=== PATIENT | female | born 1995 | race Two or more races ===

== ENCOUNTER 2022-08-01 19:35 | Inpatient (IN) | payer OTHER ==
[~2022-08-01] VITALS: Ht 154.9 cm; Wt 63.3 kg
[2022-08-01] MEDS ORDERED: IOHEXOL 300 MG/ML 100ML BOTTLE IJ ONE (20:46)
[2022-08-01 21:41] LABS: Basophils # (auto) 0.1 10 ^3/uL (0-0.2); Basophils % (auto) 0.9 % (0.0-2.0); Eosinophils # (auto) 0.1 10 ^3/uL (0-0.8); Eosinophils % (auto) 0.6 % (0.0-7.0); Hematocrit 37.7 % (36.0-46.0); Lymphocytes # (auto) 1.3 10 ^3/uL (0.4-5.4); Lymphocytes % (auto) 14.8 % (10.0-50.0); Mean Corpuscular Hemoglobin 31.7 pg (28.0-32.0); Mean Corpuscular Hgb Conc. 34.6 g/dL (32.0-36.0); Mean Corpuscular Volume 91.6 fL (80.0-100.0); Monocytes # (auto) 0.9 10 ^3/uL (0-1.3); Monocytes % (auto) 10.4 % (0.0-12.0); Neutrophils # (auto) 6.4 10 ^3/uL (1.6-8.6); Neutrophils % (auto) 73.3 % (37.0-80.0); Nucleated Red Blood Cells % 0.1 %; Red Blood Cells 4.11 10^6/uL (4.0-5.20); White Blood Cell 8.7 10^3/uL (4.4-10.8)
[2022-08-01] MEDS ORDERED: ONDANSETRON HCL 4 MG/2 ML VIAL IV ONE (21:45)
[2022-08-01] MEDS ORDERED: MORPHINE SULFATE 4 MG/ML SYR/VIAL IV ONE (21:45)
[2022-08-01 22:04] LABS: INR 1.11 (0.9-1.15); Partial Thromboplastin Time 41.7 sec (24.6-33.4)
[2022-08-01 22:07] LABS: Albumin 3.5 g/dL (3.4-5.0); Calcium 9.1 mg/dL (8.5-10.1); Potassium 3.8 mmol/L (3.5-5.1)
[2022-08-01 22:11] LABS: BUN/Creatinine Ratio 24.1; Bilirubin, Total 0.4 mg/dL (0.2-1.0); Total Protein 8.2 g/dL (6.4-8.2)
[2022-08-02] MEDS ORDERED: HYDROmorphone HCL 2 MG/ML VL/or syr IV ONE (03:15)
[2022-08-02] MEDS ORDERED: ENOXAPARIN SOD 60 MG/0.6 ML SYRINGE SC ONE (04:00)
[2022-08-02] MEDS ORDERED: SODIUM CHLORIDE 0.9% 1,000 ML IV ONE (04:30)
[2022-08-02] MEDS: SODIUM CHLORIDE 0.9% 1,000 ML IV SCH ×2 (05:45→22:25)
[2022-08-02] MEDS ORDERED: TEMAZEPAM 15 MG CAP PO PRN (05:45)
[2022-08-02] MEDS ORDERED: NITROGLYCERIN 0.4 MG SL TAB SL PRN (05:45)
[2022-08-02] MEDS ORDERED: MORPHINE SULFATE INJ 2 MG/ml SYRG IV PRN ×2 (05:45)
[2022-08-02] MEDS ORDERED: DOCUSATE SOD 100 MG CAP PO PRN (05:45)
[2022-08-02 06:14] LABS: Basophils # (auto) 0 10 ^3/uL (0-0.2); Basophils % (auto) 0.5 % (0.0-2.0); Eosinophils # (auto) 0.1 10 ^3/uL (0-0.8); Eosinophils % (auto) 0.8 % (0.0-7.0); Hematocrit 31.5 % (36.0-46.0); Lymphocytes # (auto) 1.1 10 ^3/uL (0.4-5.4); Lymphocytes % (auto) 11.5 % (10.0-50.0); Mean Corpuscular Hemoglobin 31.8 pg (28.0-32.0); Mean Corpuscular Hgb Conc. 34.9 g/dL (32.0-36.0); Mean Corpuscular Volume 91.3 fL (80.0-100.0); Monocytes # (auto) 0.9 10 ^3/uL (0-1.3); Monocytes % (auto) 9.5 % (0.0-12.0); Neutrophils # (auto) 7.1 10 ^3/uL (1.6-8.6); Neutrophils % (auto) 77.7 % (37.0-80.0); Nucleated Red Blood Cells % 0.1 %; Red Blood Cells 3.44 10^6/uL (4.0-5.20); Red Cell Distribution Width 12.9 % (11.8-14.3); White Blood Cell 9.1 10^3/uL (4.4-10.8)
[2022-08-02 06:26] LABS: Potassium 3.6 mmol/L (3.5-5.1)
[2022-08-02 06:42] LABS: Albumin 2.8 g/dL (3.4-5.0); BUN/Creatinine Ratio 29.8; Calcium 8.2 mg/dL (8.5-10.1)
[2022-08-02 06:57] LABS: Bilirubin, Total 0.4 mg/dL (0.2-1.0); Total Protein 6.9 g/dL (6.4-8.2)
[2022-08-02] MEDS ORDERED: ENOXAPARIN SOD 40 MG/0.4 ML SYRINGE SC SCH (10:00)
[2022-08-02] MEDS ORDERED: ENOXAPARIN SOD 60 MG/0.6 ML SYRINGE SC SCH ×2 (10:00→22:00)
[2022-08-02 10:16] LABS: Urine Bacteria NONE SEEN /hpf (None Seen); Urine Blood Negative /uL (Negative); Urine Specific Gravity 1.024 (1.001-1.035); Urine WBC 1 /hpf (0 - 5)
[2022-08-02] MEDS: ONDANSETRON HCL 4 MG/2 ML VIAL IV PRN ×2 (10:38→15:49)
[2022-08-02] MEDS: HYDROmorphone HCL 2 MG/ML VL/or syr IV PRN ×3 (10:39→21:35)
[2022-08-02] MEDS ORDERED: HEPARIN SODIUM (PORCINE) 5000 UNITS/ML 1ML VIAL IV ONE (11:00)
[2022-08-02] MEDS ORDERED: HEPARIN DRIP/D5W 100UNITS/ML 250 ML IV SCH ×2 (11:00→19:45)
[2022-08-02 12:08] LABS: INR 1.13 (0.9-1.15); Partial Thromboplastin Time 44.7 sec (24.6-33.4)
[2022-08-02 12:11] LABS: Basophils # (auto) 0 10 ^3/uL (0-0.2); Basophils % (auto) 0.6 % (0.0-2.0); Eosinophils # (auto) 0.1 10 ^3/uL (0-0.8); Eosinophils % (auto) 0.9 % (0.0-7.0); Hematocrit 32.8 % (36.0-46.0); Hemoglobin 11.5 g/dL (12.2-16.2); Lymphocytes # (auto) 1.3 10 ^3/uL (0.4-5.4); Lymphocytes % (auto) 17.8 % (10.0-50.0); Mean Corpuscular Hemoglobin 32.3 pg (28.0-32.0); Mean Corpuscular Hgb Conc. 35.2 g/dL (32.0-36.0); Monocytes # (auto) 0.9 10 ^3/uL (0-1.3); Monocytes % (auto) 12.3 % (0.0-12.0); Neutrophils # (auto) 5.1 10 ^3/uL (1.6-8.6); Neutrophils % (auto) 68.4 % (37.0-80.0); Red Blood Cells 3.56 10^6/uL (4.0-5.20); White Blood Cell 7.4 10^3/uL (4.4-10.8)
[2022-08-02 18:33] LABS: INR 1.13 (0.9-1.15)
[2022-08-02 18:40] LABS: Partial Thromboplastin Time 113.7 sec (24.6-33.4)
[2022-08-03] VITALS (9 sets, daily range): BP systolic 90–111; BP diastolic 48–75
[2022-08-03] MEDS: HYDROcodone-ACET 5/325MG TAB PO PRN ×2 (01:14→09:14)
[2022-08-03 02:06] LABS: Basophils # (auto) 0 10 ^3/uL (0-0.2); Basophils % (auto) 0.6 % (0.0-2.0); Eosinophils # (auto) 0.2 10 ^3/uL (0-0.8); Eosinophils % (auto) 2.5 % (0.0-7.0); Hematocrit 31.7 % (36.0-46.0); Hemoglobin 10.9 g/dL (12.2-16.2); Lymphocytes # (auto) 1.6 10 ^3/uL (0.4-5.4); Lymphocytes % (auto) 25.3 % (10.0-50.0); Mean Corpuscular Hemoglobin 31.6 pg (28.0-32.0); Mean Corpuscular Hgb Conc. 34.5 g/dL (32.0-36.0); Mean Corpuscular Volume 91.6 fL (80.0-100.0); Monocytes # (auto) 0.7 10 ^3/uL (0-1.3); Monocytes % (auto) 10.7 % (0.0-12.0); Neutrophils # (auto) 3.9 10 ^3/uL (1.6-8.6); Neutrophils % (auto) 60.9 % (37.0-80.0); Nucleated Red Blood Cells % 0.1 %; Red Blood Cells 3.47 10^6/uL (4.0-5.20); Red Cell Distribution Width 13.5 % (11.8-14.3); White Blood Cell 6.4 10^3/uL (4.4-10.8)
[2022-08-03 02:23] LABS: Albumin 2.6 g/dL (3.4-5.0); BUN/Creatinine Ratio 27.4; Calcium 8.6 mg/dL (8.5-10.1); Potassium 3.9 mmol/L (3.5-5.1)
[2022-08-03 02:25] LABS: Bilirubin, Total 0.4 mg/dL (0.2-1.0); Total Protein 6.7 g/dL (6.4-8.2)
[2022-08-03 02:29] LABS: INR 1.11 (0.9-1.15); Partial Thromboplastin Time 47.7 sec (24.6-33.4)
[2022-08-03] MEDS: HEPARIN DRIP/D5W 100UNITS/ML 250 ML IV SCH ×2 (03:23→14:44)
[2022-08-03 10:38] LABS: INR 1.08 (0.9-1.15); Partial Thromboplastin Time 51.7 sec (24.6-33.4)
[2022-08-03] MEDS: HYDROmorphone HCL 2 MG/ML VL/or syr IV PRN ×3 (13:40→23:01)
[2022-08-03] MEDS: SODIUM CHLORIDE 0.9% 1,000 ML IV SCH (15:05)
[2022-08-03 18:05] LABS: INR 1.08 (0.9-1.15); Partial Thromboplastin Time 53.2 sec (24.6-33.4)
[2022-08-03] MEDS: ACETAMINOPHEN 325 MG TAB PO PRN (23:03)
[2022-08-04 05:30] VITALS: BP 96/58
[2022-08-04] MEDS: HYDROmorphone HCL 2 MG/ML VL/or syr IV PRN ×2 (06:22→18:21)
[2022-08-04 06:31] LABS: INR 1.11 (0.9-1.15); Partial Thromboplastin Time 59.5 sec (24.6-33.4)
[2022-08-04] MEDS: SODIUM CHLORIDE 0.9% 1,000 ML IV SCH (07:46)
[2022-08-04 08:54] VITALS: BP 93/55
[2022-08-04] MEDS ORDERED: IODIXANOL 320MG/ML 100ML BTL IV ONE (09:57)
[2022-08-04] MEDS ORDERED: LIDOCAINE 2%HCL (LOCAL ANESTH.) INJ 20ML MDV ONE (09:57)
[2022-08-04] MEDS ORDERED: ANGIOMAX 250 MG VIAL IV ONE (10:15)
[2022-08-04] MEDS ORDERED: SODIUM CHL 0.9% 0 ML ONE (10:15)
[2022-08-04] MEDS ORDERED: fentaNYL CITRATE 100 MCG/2 ML VL ONE (10:15)
[2022-08-04] MEDS ORDERED: MIDAZOLAM HCL 2MG/2ML 2ml VIAL (1mg/ml) ONE (10:15)
[2022-08-04] MEDS ORDERED: HEPARIN SODIUM (PORCINE) 5000 UNITS/ML 1ML VIAL ONE ×2 (10:51→11:48)
[2022-08-04] MEDS ORDERED: HEPARIN 1,000 UNITS/ml 1ML VIAL ONE (11:24)
[2022-08-04] MEDS ORDERED: HYDROmorphone HCL 2 MG/ML VL/or syr ONE (12:11)
[2022-08-04] MEDS: HYDROcodone-ACET 10/325MG TAB PO PRN ×2 (14:38→20:49)
[2022-08-04 17:00] VITALS: BP 96/56
[2022-08-04] MEDS: HEPARIN DRIP/D5W 100UNITS/ML 250 ML IV SCH (23:08)
[2022-08-05] MEDS: SODIUM CHLORIDE 0.9% 1,000 ML IV SCH ×2 (00:25→17:05)
[2022-08-05 03:45] VITALS: BP 99/61
[2022-08-05 06:04] LABS: INR 1.14 (0.9-1.15); Partial Thromboplastin Time 69.2 sec (24.6-33.4)
[2022-08-05 09:00] VITALS: BP 93/56
[2022-08-05] MEDS: HYDROmorphone HCL 2 MG/ML VL/or syr IV PRN (11:45)
[2022-08-05 13:00] VITALS: BP 103/64
[2022-08-05 16:34] VITALS: BP 98/57
[2022-08-05] MEDS ORDERED: WARFARIN SODIUM 10 MG TAB PO ONE (17:00)
[2022-08-06] MEDS: HEPARIN DRIP/D5W 100UNITS/ML 250 ML IV SCH (02:55)
[2022-08-06] MEDS: HYDROcodone-ACET 10/325MG TAB PO PRN (02:56)
[2022-08-06 05:07] VITALS: BP 92/40
[2022-08-06 06:20] LABS: Basophils # (auto) 0 10 ^3/uL (0-0.2); Basophils % (auto) 0.5 % (0.0-2.0); Eosinophils # (auto) 0.2 10 ^3/uL (0-0.8); Eosinophils % (auto) 3.3 % (0.0-7.0); Hematocrit 29.1 % (36.0-46.0); Hemoglobin 10.2 g/dL (12.2-16.2); Lymphocytes # (auto) 1.3 10 ^3/uL (0.4-5.4); Mean Corpuscular Hemoglobin 31.6 pg (28.0-32.0); Mean Corpuscular Hgb Conc. 34.9 g/dL (32.0-36.0); Mean Corpuscular Volume 90.4 fL (80.0-100.0); Monocytes # (auto) 0.7 10 ^3/uL (0-1.3); Monocytes % (auto) 10.3 % (0.0-12.0); Neutrophils # (auto) 4.6 10 ^3/uL (1.6-8.6); Neutrophils % (auto) 66.9 % (37.0-80.0); Red Blood Cells 3.22 10^6/uL (4.0-5.20); Red Cell Distribution Width 12.8 % (11.8-14.3); White Blood Cell 6.8 10^3/uL (4.4-10.8)
[2022-08-06 06:35] LABS: INR 1.13 (0.9-1.15)
[2022-08-06 09:00] VITALS: BP 107/62
[2022-08-06] MEDS: SODIUM CHLORIDE 0.9% 1,000 ML IV SCH (09:45)
[2022-08-06] MEDS: HYDROmorphone HCL 2 MG/ML VL/or syr IV PRN ×2 (11:01→20:52)
[2022-08-06 13:00] VITALS: BP 111/66
[2022-08-06 16:29] VITALS: BP 100/62
[2022-08-06] MEDS ORDERED: WARFARIN SODIUM 2.5 MG TAB PO ONE (17:00)
[2022-08-06 22:00] VITALS: BP 101/58
[2022-08-07] MEDS: HYDROmorphone HCL 2 MG/ML VL/or syr IV PRN ×3 (02:07→17:59)
[2022-08-07] MEDS: SODIUM CHLORIDE 0.9% 1,000 ML IV SCH ×3 (02:25→23:00)
[2022-08-07 05:00] VITALS: BP 104/62
[2022-08-07 06:52] LABS: INR 1.73 (0.9-1.15); Partial Thromboplastin Time 42.9 sec (24.6-33.4)
[2022-08-07 08:00] VITALS: BP 92/51
[2022-08-07] MEDS ORDERED: HEPARIN DRIP/D5W 100UNITS/ML 250 ML IV SCH (08:30)
[2022-08-07 12:00] VITALS: BP 104/68
[2022-08-07 16:00] VITALS: BP 102/57
[2022-08-07] MEDS ORDERED: WARFARIN SODIUM 2.5 MG TAB PO ONE (17:00)
[2022-08-07 20:00] VITALS: BP 105/56
[2022-08-07 22:00] VITALS: BP 105/56
[2022-08-07] MEDS: ACETAMINOPHEN 325 MG TAB PO PRN (22:33)
[2022-08-08] MEDS: SODIUM CHLORIDE 0.9% 1,000 ML IV SCH (04:25)
[2022-08-08 05:00] VITALS: BP 91/55
[2022-08-08 06:29] LABS: INR 1.7 (0.9-1.15); Partial Thromboplastin Time 44.9 sec (24.6-33.4)
[2022-08-08 09:13] VITALS: BP 92/42
[2022-08-08] MEDS: ENOXAPARIN SOD 60 MG/0.6 ML SYRINGE SC SCH ×2 (10:24→21:42)
[2022-08-08 10:26] LABS: Basophils # (auto) 0 10 ^3/uL (0-0.2); Basophils % (auto) 0.6 % (0.0-2.0); Eosinophils # (auto) 0.2 10 ^3/uL (0-0.8); Eosinophils % (auto) 2.2 % (0.0-7.0); Hematocrit 31.5 % (36.0-46.0); Hemoglobin 10.6 g/dL (12.2-16.2); Lymphocytes # (auto) 1.3 10 ^3/uL (0.4-5.4); Lymphocytes % (auto) 16.6 % (10.0-50.0); Mean Corpuscular Hemoglobin 30.7 pg (28.0-32.0); Mean Corpuscular Hgb Conc. 33.6 g/dL (32.0-36.0); Mean Corpuscular Volume 91.4 fL (80.0-100.0); Neutrophils # (auto) 5.3 10 ^3/uL (1.6-8.6); Neutrophils % (auto) 67.6 % (37.0-80.0); Red Blood Cells 3.44 10^6/uL (4.0-5.20); Red Cell Distribution Width 13.1 % (11.8-14.3); White Blood Cell 7.8 10^3/uL (4.4-10.8)
[2022-08-08 10:31] LABS: Calcium 8.8 mg/dL (8.5-10.1); Potassium 4.3 mmol/L (3.5-5.1)
[2022-08-08 12:30] VITALS: BP 95/56
[2022-08-08] MEDS: HYDROmorphone HCL 2 MG/ML VL/or syr IV PRN (14:40)
[2022-08-08 17:00] VITALS: BP 107/61
[2022-08-08] MEDS ORDERED: WARFARIN SODIUM 2.5 MG TAB PO ONE (17:00)
[2022-08-08] MEDS: HYDROcodone-ACET 10/325MG TAB PO PRN (21:45)
[2022-08-08 22:00] VITALS: BP 96/51
[2022-08-09 05:00] VITALS: BP 92/54
[2022-08-09 07:04] LABS: INR 1.51 (0.9-1.15); Partial Thromboplastin Time 47.9 sec (24.6-33.4)
[2022-08-09 09:00] VITALS: BP 96/52
[2022-08-09] MEDS: HYDROmorphone HCL 2 MG/ML VL/or syr IV PRN ×2 (10:27→15:26)
[2022-08-09] MEDS: ENOXAPARIN SOD 60 MG/0.6 ML SYRINGE SC SCH ×2 (11:00→22:00)
[2022-08-09] MEDS ORDERED: HYDR-4902 PO ×4 (12:37→17:54)
[2022-08-09] MEDS ORDERED: WARF7.5T20 PO ×5 (12:37→17:54)
[2022-08-09] MEDS ORDERED: ENO60SY SC ×5 (12:37→17:54)
[2022-08-09 13:00] VITALS: BP 103/58
[2022-08-09 17:00] VITALS: BP 101/62
[2022-08-09] MEDS ORDERED: WARFARIN SODIUM 2.5 MG TAB PO ONE (17:00)
[2022-08-09] MEDS: SODIUM CHLORIDE 0.9% 1,000 ML IV SCH (21:05)
[2022-08-09] MEDS: HYDROcodone-ACET 10/325MG TAB PO PRN (21:45)
[2022-08-09 22:00] VITALS: BP 97/60
[2022-08-10] MEDS: HYDROcodone-ACET 10/325MG TAB PO PRN ×2 (01:54→03:00)
[2022-08-10 05:00] VITALS: BP 90/56
[2022-08-10 06:10] LABS: Basophils # (auto) 0.1 10 ^3/uL (0-0.2); Basophils % (auto) 0.7 % (0.0-2.0); Eosinophils # (auto) 0.2 10 ^3/uL (0-0.8); Eosinophils % (auto) 2.9 % (0.0-7.0); Hemoglobin 9.3 g/dL (12.2-16.2); Lymphocytes % (auto) 27.6 % (10.0-50.0); Mean Corpuscular Hemoglobin 31.3 pg (28.0-32.0); Mean Corpuscular Hgb Conc. 34.5 g/dL (32.0-36.0); Mean Corpuscular Volume 90.9 fL (80.0-100.0); Monocytes # (auto) 0.9 10 ^3/uL (0-1.3); Monocytes % (auto) 11.6 % (0.0-12.0); Neutrophils # (auto) 4.2 10 ^3/uL (1.6-8.6); Neutrophils % (auto) 57.2 % (37.0-80.0); Nucleated Red Blood Cells % 0.1 %; Red Blood Cells 2.97 10^6/uL (4.0-5.20); White Blood Cell 7.4 10^3/uL (4.4-10.8)
[2022-08-10 06:28] LABS: INR 1.97 (0.9-1.15); Partial Thromboplastin Time 49.3 sec (24.6-33.4)
[2022-08-10 08:00] VITALS: BP 90/52
[2022-08-10 09:00] VITALS: BP 120/82
[2022-08-10] MEDS: ENOXAPARIN SOD 60 MG/0.6 ML SYRINGE SC SCH (10:22)
[2022-08-10] MEDS: SODIUM CHLORIDE 0.9% 1,000 ML IV SCH (13:47)
[2022-08-10] MEDS ORDERED: WARFARIN SODIUM 2 MG TAB PO ONE (17:00)
== END 2022-08-10 15:00 | disposition home or self-care (01) | DRG 271 ==
LOC: ER 19:39 → TELE 08-02 05:44 → TELE-WESTW 08-02 22:51
PROVIDERS: ADMIT Nurse Practitioner Family; ATTEND Internal Medicine
PROC: X2CU3T7 Extirpation of Matter from Right Lower Extremity Vein using Computer-aided Mechanical Aspiration, Percutaneous Approach, New Technology Group 7 (ICD-10-PCS; principal; 2022-08-04)
PROC: X2CY3T7 Extirpation of Matter from Great Vessel using Computer-aided Mechanical Aspiration, Percutaneous Approach, New Technology Group 7 (ICD-10-PCS; 2022-08-04)
PROC: B51B1ZZ Fluoroscopy of Right Lower Extremity Veins using Low Osmolar Contrast (ICD-10-PCS; 2022-08-04)
DX: I82.421 Acute embolism and thrombosis of right iliac vein (principal); D68.59 Other primary thrombophilia; I82.220 Acute embolism and thrombosis of inferior vena cava; Z20.822 Contact with and (suspected) exposure to COVID-19; Z88.0 Allergy status to penicillin; E16.2 Hypoglycemia, unspecified; Z86.718 Personal history of other venous thrombosis and embolism
CPT/HCPCS: 36415; 71045; 73701; 76937; 80048; 80053; 81001; 81025; 83036; 84484; 85025; 85379; 85610; 85730; 87426; 93005; 93306; 93970; 99152; 99153; C1769; G0378; J2250; J2405; Q9967